=== PATIENT | male | born 1985 | race American Indian/Alaskan Native ===

== ENCOUNTER 2019-02-18 19:33 | Observation (INO) | payer BC, OTHER ==
--- NOTE | 2019-02-18 20:06 | CR ---
INDICATION: chest pain TECHNIQUE: Chest 1 view. COMPARISON: None. FINDINGS: Cardiovascular and mediastinum: Heart size and vasculature are normal in caliber and appearance. Mediastinum is within normal limits. Lungs and pleural space: Lungs are clear. No sign of infiltrate or mass. No sign of pleural effusion. No pneumothorax. Bones and soft tissues: No significant findings. IMPRESSION: Unremarkable chest. Dictated by: Sukhdev Desai MD @ 02/18/2019 20:05:53 (Electronically Signed)
[2019-02-18] MEDS ORDERED: Aspirin 81 MG Tab.Chew PO ONE (20:14)
--- NOTE | 2019-02-18 20:14 | EDM.PDOC ---
ED HPI GENERAL MEDICAL PROBLEM - General Chief Complaint: Cardiovascular Problem Stated Complaint: HEART ISSUES Time Seen by Provider: 02/18/19 19:40 Source of Information: Reports: Patient History Limitations: Reports: No Limitations - History of Present Illness INITIAL COMMENTS - FREE TEXT/NARRATIVE: HISTORY AND PHYSICAL: History of present illness: Patient is a 33-year-old male who presents to the ED today for concern of an episode of mid sternal chest pain, palpitations, and dizziness that occurred just prior to arrival to the ED and lasted approximately 1 minute. Patient states while in the ED, he does not have any symptoms or concerns at this time. Patient states he has an extensive family history of coronary artery disease so when the chest pain came on instantly became anxious and came to the ED. Patient states his father and his grandfather had a heart attack in their early 30s and he is quite anxious about this. Patient states he's never had prior episodes of this before. Patient denies any health history for him and states he takes no medications. Patient denies any other symptoms or concerns at this time. Patient did not take anything for her symptoms. Patient denies fever, chills, shortness of breath, or cough. Denies headache, neck stiff ness, change in vision, syncope, or near syncope. Denies nausea, vomiting, abdominal pain, diarrhea, constipation, or dysuria. Has not noted any blood in urine or stool. Patient has been eating and drinking appropriately. Review of systems: As per history of present illness and below otherwise all systems reviewed and negative. Past medical history: As per history of present illness and as reviewed below otherwise noncontributory. Surgical history: As per history of present illness and as reviewed below otherwise noncontributory. Social history: See social history for further information Family history: As per history of present illness and as reviewed below otherwise noncontributory. Physical exam: General: Patient is alert, oriented, and in no acute distress. Patient sitting comfortably on exam table but does appear mildly anxious. HEENT: Atraumatic, normocephalic, pupils equal and reactive bilaterally, negative for conjunctival pallor or scleral icterus, mucous membranes moist, TMs normal bilaterally, throat clear, neck supple, nontender, trachea midline. No drooling or trismus noted. No meningeal signs. No hot potato voice noted. Lungs: Clear to auscultation, breath sounds equal bilaterally, chest nontender. Heart: S1S2, regular rate and rhythm without overt murmur Abdomen: Soft, nondistended, nontender. Negative for masses or hepatosplenomegaly. Negative for costovertebral tenderness. Pelvis: Stable nontender. Genitourinary: Deferred. Rectal: Deferred. Skin: Intact, warm, dry. No lesions or rashes noted. Extremities: Atraumatic, negative for cords or calf pain. Neurovascular unremarkable. Neuro: Awake, alert, oriented. Cranial nerves II through XII unremarkable. Cerebellum unremarkable. Motor and sensory unremarkable throughout. Exam nonfocal. Notes: Patient is quite anxious about his extensive family history of CAD. Dr. Bales consult on patient and will admit to observation. Voices understanding and is agreeable to plan of care. Denies any further questions or concerns at this time. Diagnostics: CBC, CMP, UA, EKG, troponin, chest x-ray Therapeutics: ASA Impression: Chest pain, unspecified Family history coronary artery disease Transaminitis Plan: 1. Admit to observation Dr. Bales. Definitive disposition and diagnosis as appropriate pending reevaluation and review of above. - Related Data Allergies Allergy/AdvReac Type Severity Reaction Status Date / Time No Known Allergies Allergy Verified 02/18/19 19:41 Home Meds: Home Meds . [No Known Home Meds] 02/18/19 [History] Past Medical History HEENT History: Reports: Impaired Vision, Other (See Below) Other HEENT History: wears glasses - Past Surgical History Musculoskeletal Surgical History: Reports: Other (See Below) Other Musculoskeletal Surgeries/Procedures:: left thumb sx Social & Family History - Family History Family Medical History: Noncontributory - Tobacco Use Smoking Status *Q: Never Smoker - Caffeine Use Caffeine Use: Reports: Tea Caffeine Use Comment: daily - Recreational Drug Use Recreational Drug Use: No ED ROS GENERAL - Review of Systems Review Of Systems: ROS reveals no pertinent complaints other than HPI. ED EXAM, GENERAL - Physical Exam Exam: See Below (See dictation) Course - Vital Signs Last Recorded V/S: Last Vital Signs Temp 36.4 C 02/18/19 19:33 Pulse 100 02/18/19 20:26 Resp 17 02/18/19 20:26 BP 138/88 02/18/19 20:26 Pulse Ox 95 02/18/19 20:26 - Orders/Labs/Meds Orders: Active Orders 24 hr Category Date Time Status Admission Status [Patient Status] [ADT] Stat ADT 02/18/19 21:34 Ordered EKG Documentation Completion [RC] STAT Care 02/18/19 19:41 Active Labs: Laboratory Tests 02/18/19 02/18/19 02/18/19 Range/Units 19:57 19:57 20:41 WBC 8.87 (4.0-11.0) K/uL RBC 5.12 (4.50-5.90) M/uL Hgb 15.7 (13.0-17.0) g/dL Hct 45.6 (38.0-50.0) % MCV 89.1 (80.0-98.0) fL MCH 30.7 (27.0-32.0) pg MCHC 34.4 (31.0-37.0) g/dL RDW Std Deviation 44.5 (28.0-62.0) fl RDW Coeff of Amry Ann 14 (11.0-15.0) % Plt Count 263 (150-400) K/uL MPV 9.80 (7.40-12.00) fL Neut % (Auto) 52.8 (48.0-80.0) % Lymph % (Auto) 36.8 (16.0-40.0) % [place] % (Auto) 7.3 (0.0-15.0) % Eos % (Auto) 2.9 (0.0-7.0) % Baso % (Auto) 0.2 (0.0-1.5) % Neut # (Auto) 4.7 (1.4-5.7) K/uL Lymph # (Auto) 3.3 H (0.6-2.4) K/uL [place] # (Auto) 0.7 (0.0-0.8) K/uL Eos # (Auto) 0.3 (0.0-0.7) K/uL Baso # (Auto) 0.0 (0.0-0.1) K/uL Nucleated RBC % 0.0 /100WBC Nucleated RBCs # 0 K/uL Sodium 141 (136-148) mmol/L Potassium 4.3 (3.5-5.1) mmol/L Chloride 105 (98-107) mmol/L Carbon Dioxide 25.1 (21.0-32.0) mmol/L BUN 14 (7.0-18.0) mg/dL Creatinine 1.2 (0.8-1.3) mg/dL Est Cr Clr Drug Dosing 90.41 mL/min Estimated GFR (MDRD) > 60.0 ml/min Glucose 116 H (74-106) mg/dL Calcium 9.6 (8.5-10.1) mg/dL Total Bilirubin 0.5 (0.2-1.0) mg/dL AST 88 H (15-37) IU/L ALT 77 H (14-63) IU/L Alkaline Phosphatase 69 (46-116) U/L Troponin I < 0.050 (0.000-0.056) ng/mL Total Protein 8.6 H (6.4-8.2) g/dL Albumin 4.3 (3.4-5.0) g/dL Globulin 4.3 H (2.6-4.0) g/dL Albumin/Globulin Ratio 1.0 (0.9-1.6) Urine Color YELLOW Urine Appearance CLEAR Urine pH 5.5 (5.0-8.0) Ur Specific [place] >= 1.030 (1.001-1.035) Urine Protein NEGATIVE (NEGATIVE) mg/dL Urine Glucose (UA) NEGATIVE (NEGATIVE) mg/dL Urine Ketones NEGATIVE (NEGATIVE) mg/dL Urine Occult Blood NEGATIVE (NEGATIVE) Urine Nitrite NEGATIVE (NEGATIVE) Urine Bilirubin NEGATIVE (NEGATIVE) Urine Urobilinogen 0.2 (<2.0) EU/dL Ur Leukocyte Esterase NEGATIVE (NEGATIVE) Meds: Medications Discontinued Medications Generic Name Dose Route Start Last Admin Trade Name Arthurq PRN Reason Stop Dose Admin Aspirin 324 mg 02/18/19 20:14 02/18/19 20:25 Aspirin PO 02/18/19 20:15 324 mg ONETIME ONE Administration Departure - Departure Time of Disposition: 21:37 Disposition: Refer to Observation Clinical Impression: Family history of coronary artery disease, Transaminitis Chest pain Qualifiers: Chest pain type: unspecified Qualified Code(s): R07.9 - Chest pain, unspecified - My Orders Last 24 Hours: My Active Orders 02/18/19 19:41 EKG Documentation Completion [RC] STAT 02/18/19 21:34 Admission Status [Patient Status] [ADT] Stat - Assessment/Plan Last 24 Hours: My Active Orders 02/18/19 19:41 EKG Documentation Completion [RC] STAT 02/18/19 21:34 Admission Status [Patient Status] [ADT] Stat
[2019-02-18 20:36] LABS: BLOOD UREA NITROGEN,BUN 14 mg/dL (7.0-18.0); CARBON DIOXIDE,CO2 25.1 mmol/L (21.0-32.0); CHLORIDE,CL 105 mmol/L (98-107); GLUCOSE RANDOM 116 mg/dL (74-106); POTASSIUM,K 4.3 mmol/L (3.5-5.1); SODIUM,NA 141 mmol/L (136-148)
[2019-02-19] MEDS ORDERED: Pantoprazole 40 MG Tab.CR PO STA (08:25)
[2019-02-19] MEDS ORDERED: Enoxaparin 40 MG/0.4 ML Syringe SUBCUT SCH (08:30)
--- NOTE | 2019-02-19 09:01 | PCM.HP ---
H&P History of Present Illness - General Date of Service: 02/19/19 Admit Problem/Dx: Admission Diagnosis/Problem Admission Diagnosis/Problem Chest pain - History of Present Illness Initial Comments - Free Text/Narative: 33 y/o male presenting to the ER complaining of chest pain, shortness of breath. States he was in his car waiting in line at a fast food drive through when he suddenly had intense chest pain and short of breath. States he noticed his heart racing. Denies smoking. Occasional alcohol use. No illicit drug use. No syncopal episodes. Denies any acid reflux. Rated pain 8/10, constant. No radiation to neck or left arm. No nausea or vomiting. Denies any recent illness. No abdominal pain, dysuria, diarrhea, constipation. No trauma to chest. Denies any family history of heart disease. He considers himself in overall good health. No diabetes, cholesterol, hypertension. This morning, the patient was standing and pacing in his room. No acute distress. States he feels better. Symptoms resolved. Serial troponins were negative. - Related Data Allergies/Adverse Reactions: Allergies Allergy/AdvReac Type Severity Reaction Status Date / Time No Known Allergies Allergy Verified 02/18/19 22:06 Home Medications: Home Meds Pantoprazole [ProTONIX] 40 mg PO DAILY 30 Days #30 tab.cr 02/19/19 [Rx] Past Medical History HEENT History: Reports: Impaired Vision, Other (See Below) Other HEENT History: wears glasses - Past Surgical History Musculoskeletal Surgical History: Reports: Other (See Below) Other Musculoskeletal Surgeries/Procedures:: left thumb sx Social & Family History - Family History Family Medical History: Noncontributory - Tobacco Use Smoking Status *Q: Never Smoker Second Hand Smoke Exposure: No - Caffeine Use Caffeine Use: Reports: Energy Drinks, Tea Caffeine Use Comment: daily - Recreational Drug Use Recreational Drug Use: No H&P Review of Systems - Review of Systems: Review Of Systems: ROS reveals no pertinent complaints other than HPI. Exam - Exam Exam: See Below - Vital Signs Vital Signs: Last Vital Signs Temp 35.9 C 02/19/19 07:41 Pulse 76 02/19/19 07:41 Resp 16 02/19/19 07:41 BP 114/73 02/19/19 07:41 Pulse Ox 95 02/19/19 08:24 Weight: 102.784 kg - Exam General: Alert, Oriented, Cooperative Lungs: Clear to Auscultation, Normal Respiratory Effort Cardiovascular: Regular Rate, Regular Rhythm GI/Abdominal Exam: Normal Bowel Sounds, Soft, Non-Tender Extremities: Normal Inspection, No Pedal Edema Skin: Warm, Dry - Patient Data Lab Results Last 24 hrs: Laboratory Results - last 24 hr 02/18/19 02/18/19 02/18/19 Range/Units 19:57 19:57 20:41 WBC 8.87 (4.0-11.0) K/uL RBC 5.12 (4.50-5.90) M/uL Hgb 15.7 (13.0-17.0) g/dL Hct 45.6 (38.0-50.0) % MCV 89.1 (80.0-98.0) fL MCH 30.7 (27.0-32.0) pg MCHC 34.4 (31.0-37.0) g/dL RDW Std Deviation 44.5 (28.0-62.0) fl RDW Coeff of Mary Ann 14 (11.0-15.0) % Plt Count 263 (150-400) K/uL MPV 9.80 (7.40-12.00) fL Neut % (Auto) 52.8 (48.0-80.0) % Lymph % (Auto) 36.8 (16.0-40.0) % [place] % (Auto) 7.3 (0.0-15.0) % Eos % (Auto) 2.9 (0.0-7.0) % Baso % (Auto) 0.2 (0.0-1.5) % Neut # (Auto) 4.7 (1.4-5.7) K/uL Lymph # (Auto) 3.3 H (0.6-2.4) K/uL [place] # (Auto) 0.7 (0.0-0.8) K/uL Eos # (Auto) 0.3 (0.0-0.7) K/uL Baso # (Auto) 0.0 (0.0-0.1) K/uL Nucleated RBC % 0.0 /100WBC Nucleated RBCs # 0 K/uL Sodium 141 (136-148) mmol/L Potassium 4.3 (3.5-5.1) mmol/L Chloride 105 (98-107) mmol/L Carbon Dioxide 25.1 (21.0-32.0) mmol/L BUN 14 (7.0-18.0) mg/dL Creatinine 1.2 (0.8-1.3) mg/dL Est Cr Clr Drug Dosing 90.41 mL/min Estimated GFR (MDRD) > 60.0 ml/min Glucose 116 H (74-106) mg/dL Calcium 9.6 (8.5-10.1) mg/dL Total Bilirubin 0.5 (0.2-1.0) mg/dL AST 88 H (15-37) IU/L ALT 77 H (14-63) IU/L Alkaline Phosphatase 69 (46-116) U/L Troponin I < 0.050 (0.000-0.056) ng/mL Total Protein 8.6 H (6.4-8.2) g/dL Albumin 4.3 (3.4-5.0) g/dL Globulin 4.3 H (2.6-4.0) g/dL Albumin/Globulin Ratio 1.0 (0.9-1.6) Urine Color YELLOW Urine Appearance CLEAR Urine pH 5.5 (5.0-8.0) Ur Specific [place] >= 1.030 (1.001-1.035) Urine Protein NEGATIVE (NEGATIVE) mg/dL Urine Glucose (UA) NEGATIVE (NEGATIVE) mg/dL Urine Ketones NEGATIVE (NEGATIVE) mg/dL Urine Occult Blood NEGATIVE (NEGATIVE) Urine Nitrite NEGATIVE (NEGATIVE) Urine Bilirubin NEGATIVE (NEGATIVE) Urine Urobilinogen 0.2 (<2.0) EU/dL Ur Leukocyte Esterase NEGATIVE (NEGATIVE) 02/19/19 02/19/19 Range/Units 01:55 07:55 WBC (4.0-11.0) K/uL RBC (4.50-5.90) M/uL Hgb (13.0-17.0) g/dL Hct (38.0-50.0) % MCV (80.0-98.0) fL MCH (27.0-32.0) pg MCHC (31.0-37.0) g/dL RDW Std Deviation (28.0-62.0) fl RDW Coeff of Mary Ann (11.0-15.0) % Plt Count (150-400) K/uL MPV (7.40-12.00) fL Neut % (Auto) (48.0-80.0) % Lymph % (Auto) (16.0-40.0) % [place] % (Auto) (0.0-15.0) % Eos % (Auto) (0.0-7.0) % Baso % (Auto) (0.0-1.5) % Neut # (Auto) (1.4-5.7) K/uL Lymph # (Auto) (0.6-2.4) K/uL [place] # (Auto) (0.0-0.8) K/uL Eos # (Auto) (0.0-0.7) K/uL Baso # (Auto) (0.0-0.1) K/uL Nucleated RBC % /100WBC Nucleated RBCs # K/uL Sodium (136-148) mmol/L Potassium (3.5-5.1) mmol/L Chloride (98-107) mmol/L Carbon Dioxide (21.0-32.0) mmol/L BUN (7.0-18.0) mg/dL Creatinine (0.8-1.3) mg/dL Est Cr Clr Drug Dosing mL/min Estimated GFR (MDRD) ml/min Glucose (74-106) mg/dL Calcium (8.5-10.1) mg/dL Total Bilirubin (0.2-1.0) mg/dL AST (15-37) IU/L ALT (14-63) IU/L Alkaline Phosphatase (46-116) U/L Troponin I < 0.050 < 0.050 (0.000-0.056) ng/mL Total Protein (6.4-8.2) g/dL Albumin (3.4-5.0) g/dL Globulin (2.6-4.0) g/dL Albumin/Globulin Ratio (0.9-1.6) Urine Color Urine Appearance Urine pH (5.0-8.0) Ur Specific [place] (1.001-1.035) Urine Protein (NEGATIVE) mg/dL Urine Glucose (UA) (NEGATIVE) mg/dL Urine Ketones (NEGATIVE) mg/dL Urine Occult Blood (NEGATIVE) Urine Nitrite (NEGATIVE) Urine Bilirubin (NEGATIVE) Urine Urobilinogen (<2.0) EU/dL Ur Leukocyte Esterase (NEGATIVE) Result Diagrams: 02/18/19 19:57 02/18/19 19:57 Problem List Initiated/Reviewed/Updated: Yes Orders Last 24hrs: Active Orders 24 hr Category Date Time Status Admission Status [Patient Status] [ADT] Stat ADT 02/18/19 21:34 Active Oxygen Therapy [RC] PRN Care 02/19/19 08:24 Active Up ad Maria Teresa [RC] ASDIRECTED Care 02/19/19 08:24 Active VTE/DVT Education [RC] PER UNIT ROUTINE Care 02/19/19 08:24 Active Vital Signs [RC] Q4H Care 02/19/19 08:24 Active Regular Diet [DIET] Diet 02/19/19 Breakfast Active Enoxaparin [Lovenox] Med 02/19/19 08:30 Active 40 mg SUBCUT Q24H Resuscitation Status Routine Resus Stat 02/19/19 08:24 Ordered Medication Orders Enoxaparin Sodium (Lovenox) 40 mg SUBCUT Q24H CHANELLE Last Admin: 02/19/19 08:41 Dose: 40 mg Assessment/Plan Comment:: A: 1. Atypical chest pain, r/o ACS P: 1. Serial troponins were negative. EKG unremarkable. Feeling better this morning. Suspect likely 2/2 acid reflux vs anxiety, panic attack. Will start pantoprazole 40 mg PO daily and see if that helps. Will order Echo. Discharge Summary (02/19/19): Patient was admitted for atypical chest pain, ruled out ACS. Serial troponins were negative and symptoms had resolved. Patient was discharged on pantoprazole 40mg PO daily. Provided with script for Zio patch and exercise stress test as outpatient. In addition, Echo results were pending at time of discharge.
--- NOTE | 2019-02-23 12:09 | ECHO ---
The echocardiogram report can be seen in this patient's EMR (Electronic Medical Records) in the Reports section. The echocardiogram report has also been scanned into PACS and can be seen there as well. EMMY
== END 2019-02-19 12:43 | disposition home or self-care (01) ==
LOC: MW.ED 19:33 → MW.MS 21:34
PROVIDERS: ADMIT Internal Medicine; ATTEND Internal Medicine
DX: R07.89 Other chest pain (principal); Z82.49 Family history of ischemic heart disease and other diseases of the circulatory system
CPT/HCPCS: 36415; 71045; 80053; 81003; 84484; 85025; 93005; 93306; 99285; A9270; J1650; 96372; 99284; G0378

== ENCOUNTER 2020-04-10 20:48 | Emergency (ER) | payer BC, OTHER ==
[2020-04-10] MEDS ORDERED: Diazepam 2 MG Tab PO ONE (22:41)
[2020-04-10] MEDS ORDERED: Acetaminophen 325 MG Tab PO ONE (22:41)
[2020-04-10] MEDS ORDERED: Ketorolac 15 MG/ML SDV IM ONE (22:42)
--- NOTE | 2020-04-10 23:13 | CR ---
INDICATION: RIGHT SIDED RIB PAIN CONCERNS FOR PTX TECHNIQUE: Chest 2 views. COMPARISON: 02/18/19 FINDINGS: Cardiovascular and mediastinum: Heart size and vasculature are normal in caliber and appearance. Mediastinum is within normal limits. Lungs and pleural spaces: Lungs are clear. No sign of infiltrate or mass. No sign of pleural effusion. No pneumothorax. Bones and soft tissues: No significant findings. IMPRESSION: Unremarkable chest. Dictated by: Sukhdev Desai MD @ 04/10/2020 23:13:12 (Electronically Signed)
--- NOTE | 2020-04-10 23:25 | EDM.PDOC ---
ED [facility] GENERAL MEDICAL PROBLEM - General Chief Complaint: General Stated Complaint: TORN MUSCLE Time Seen by Provider: 04/10/20 21:09 - History of Present Illness INITIAL COMMENTS - FREE TEXT/NARRATIVE: HISTORY AND PHYSICAL: History of present illness: This 35-year-old male with a past medical history of chronic back pain who currently takes diclofenac and cyclobenzaprine presents to the emergency department complaining of right-sided low chest pain secondary to an acute sneeze. Patient said that he had a sneezing episode of very severe and then he had a tearing sensation along the right lateral chest wall along the 10th or 11th intercostal space. He took some diclofenac which slightly improved this. He denies any shortness of breath or persistent chest pain just hurts when he takes a deep breath. He is never had this before. No other associated signs or symptoms. No other modifying, aggravating or alleviating factors. Review of systems: A 10-point review of systems, other than pertinent positives and negatives as stated per HPI, is otherwise negative. Past medical history: As per history of present illness and as reviewed below otherwise noncontributory. Surgical history: As per history of present illness and as reviewed below otherwise noncontributory. Social history: No reported history of drug or alcohol abuse. Family history: As per history of present illness and as reviewed below otherwise noncontributory. Physical exam: VITAL SIGNS: Reviewed. GENERAL: Appears to be in acute pain but otherwise non-toxic or ill. HEAD: No signs of head trauma. EYES: Pupils are equal. Extraocular motions intact. EARS: Hearing grossly intact. MOUTH: Oropharynx is normal. NECK: No adenopathy, no JVD. CHEST: Chest with clear breath sounds bilaterally. No wheezes, rales, or rhonchi. Chest wall is tender along the 10th or 11th intercostal space on the right side. There is no crepitus or instability CARDIAC: Regular rate and rhythm. Normal S1 and S2, without murmurs, gallops, or rubs. VASCULAR: Peripheral pulses normal and equal in all extremities. ABDOMEN: Soft, without detectable tenderness. No sign of distention. No rebound or guarding, and no masses palpated. MUSCULOSKELETAL: Good range of motion of all major joints. Extremities without clubbing, cyanosis or edema. NEUROLOGIC EXAM: Alert and oriented x 3. No focal sensory or motor deficits. Speech normal. Follows commands. PSYCHIATRIC: Mood normal. SKIN: No rash or lesions. I have reviewed the chest x-ray which was normal. The patient does not have typical chest pain and I do not feel an EKG is indicated Initial Differential Diagnosis & Plan: Torn muscle, fractured rib, spontaneous pneumothorax Chest x-ray is normal. Pain is reproducible on touch. This happened from a sneezing episode. My diagnostic impression: 1. Muscle strain/tear Home on NSAIDs, muscle relaxant, and rest. Return for worsening. right abd Pain Score (Numeric/FACES): 4 - Related Data Allergies Allergy/AdvReac Type Severity Reaction Status Date / Time No Known Allergies Allergy Verified 04/10/20 21:34 Home Meds: Home Meds Pantoprazole [ProTONIX] 40 mg PO DAILY 30 Days #30 tab.cr 02/19/19 [Rx] Diclofenac Sodium [Diclofenac Sodium ER] 100 mg PO 04/10/20 [History] methocarbamoL [Methocarbamol] 750 mg PO QID 14 Days #60 tablet 04/10/20 [Rx] Past Medical History HEENT History: Reports: Impaired Vision, Other (See Below) Other HEENT History: wears glasses - Infectious Disease History Infectious Disease History: Reports: Chicken Pox - Past Surgical History Musculoskeletal Surgical History: Reports: Other (See Below) Other Musculoskeletal Surgeries/Procedures:: left thumb sx Social & Family History - Family History Family Medical History: Noncontributory - Tobacco Use Smoking Status *Q: Never Smoker - Caffeine Use Caffeine Use: Reports: Energy Drinks, Tea Caffeine Use Comment: daily ED ROS GENERAL - Review of Systems Review Of Systems: See Below (noted) ED EXAM, GENERAL - Physical Exam Exam: See Below (noted) Course - Vital Signs Last Recorded V/S: Last Vital Signs Temp 95.6 F L 04/10/20 21:28 Pulse 105 H 04/10/20 21:28 Resp 16 04/10/20 21:28 BP 197/91 H 04/10/20 21:28 Pulse Ox 96 04/10/20 21:28 - Orders/Labs/Meds Meds: Medications Discontinued Medications Generic Name Dose Route Start Last Admin Trade Name Freq PRN Reason Stop Dose Admin Acetaminophen 975 mg 04/10/20 22:41 04/10/20 23:05 Tylenol PO 04/10/20 22:42 975 mg NOW ONE Administration Diazepam 2 mg 04/10/20 22:41 04/10/20 23:06 Valium PO 04/10/20 22:42 2 mg ONETIME ONE Administration Ketorolac Tromethamine 15 mg 04/10/20 22:42 04/10/20 23:06 Toradol IM 04/10/20 22:43 15 mg ONETIME ONE Administration Departure - Departure Time of Disposition: 23:22 Disposition: Home, Self-Care 01 Clinical Impression: Torn muscle - Discharge Information *PRESCRIPTION DRUG MONITORING PROGRAM REVIEWED*: Not Applicable *COPY OF PRESCRIPTION DRUG MONITORING REPORT IN PATIENT ELPIDIO: Not Applicable Instructions: Low Back Strain Rehab-SportsMed Referrals: PCP,None [Primary Care Provider] - Additional Instructions: The following information is given to patients seen in the emergency department who are being discharged to home. This information is to outline your options for follow-up care. We provide all patients seen in our emergency department with a follow-up referral. The need for follow-up, as well as the timing and circumstances, are variable depending upon the specifics of your emergency department visit. If you don't have a primary care physician on staff, we will provide you with a referral. We always advise you to contact your personal physician following an emergency department visit to inform them of the circumstance of the visit and for follow-up with them and/or the need for any referrals to a consulting specialist. The emergency department will also refer you to a specialist when appropriate. This referral assures that you have the opportunity for follow-up care with a specialist. All of these measure are taken in an effort to provide you with optimal care, which includes your follow-up. Thank you for coming to the [facility] urgency department for your care today. It was Dr. Whaley's pleasure to take care of you. [facility] [address] [place] [id number] [facility] [address] [place] [id number] Your chest x-ray is normal. You likely have a strained or torn muscle. Sometimes this is in between the ribs and can be quite painful. Return for fever, persistent shortness of breath, persistent chest pain or any other concerns. We are is happy to see you. Under all circumstances we always encourage you to contact your private physician who remains a resource for coordinating your care. When calling for follow-up care, please make the office aware that this follow-up is from your recent emergency room visit. If for any reason you are refused follow-up, please contact the [facility] Emergency Department at and asked to speak to the emergency department charge nurse. Sepsis Event Note (ED) - Evaluation Sepsis Screening Result: No Definite Risk - Focused Exam Vital Signs: Vital Signs Temp Pulse Resp BP Pulse Ox 04/10/20 21:28 95.6 F L 105 H 16 197/91 H 96
== END 2020-04-10 23:30 | disposition home or self-care (01) ==
LOC: MW.ED 20:48
DX: S29.011A Strain of muscle and tendon of front wall of thorax, initial encounter (principal); X58.XXXA Exposure to other specified factors, initial encounter
CPT/HCPCS: 71046; 96372; 99283; A9270; J1885